=== PATIENT | female | born 1935 | race African-American/Black ===

== ENCOUNTER 2024-01-05 13:44 | Observation (INO) | payer MEDICARE, OTHER ==
--- NOTE | 2024-01-05 14:06 | ED ---
General Adult HPI - General Chief complaint: Syncope Stated complaint: Syncope Time Seen by Provider: 01/05/24 13:45 Source: patient, EMS, RN notes reviewed, old records reviewed Mode of arrival: EMS Limitations: no limitations - History of Present Illness Initial comments: Is an 88-year-old female who presents to the emergency department stating that s he felt fine this morning had a checkup with her doctor today and after she got out of the doctor's office it was very hot outside she started feeling a little off at that point in time. Patient states when she got home she was a little nauseous and the next he knows she passed out. Patient states this happened about 2 weeks ago and she felt fine after show she never came in. Patient states she currently feels fine does not really want to be here. Patient denies ever having any chest pain difficulty breathing shortness of breath. Patient Nu[place] any vomiting or diarrhea. Patient denies any recent fever chills or cough. Patient states she feels completely at her baseline now and has no complaints - Related Data Home Medications Medication Instructions Recorded Confirmed Acetaminophen [Tylenol Arthritis] 650 - 1,300 mg PO Q6H PRN 01/05/24 01/05/24 Apixaban [Eliquis] 5 mg PO BID 01/05/24 01/05/24 Empagliflozin [Jardiance] 10 mg PO DAILY 01/05/24 01/05/24 Escitalopram [Lexapro] 10 mg PO DAILY 01/05/24 01/05/24 Furosemide [Lasix] 40 mg PO DAILY 01/05/24 01/05/24 Gabapentin [Gralise] 600 mg PO BID PRN 01/05/24 01/05/24 Losartan Potassium 100 mg PO DAILY 01/05/24 01/05/24 Metoprolol Tartrate [Lopressor] 25 mg PO BID 01/05/24 01/05/24 Pantoprazole [Protonix] 40 mg PO DAILY 01/05/24 01/05/24 Potassium Chloride ER [K-Dur 20] 20 meq PO HS 01/05/24 01/05/24 oxyBUTYnin chloride [Ditropan] 5 mg PO DAILY 01/05/24 01/05/24 Allergies Allergy/AdvReac Type Severity Reaction Status Date / Time No Known Allergies Allergy Verified 01/05/24 14:25 Review of Systems ROS Statement: Those systems with pertinent positive or pertinent negative responses have been documented in the HPI. ROS Other: All systems not noted in ROS Statement are negative. Past Medical History Past Medical History: Heart Failure, Hypertension History of Any Multi-Drug Resistant Organisms: VRE Date of last positivie culture/infection: 09/06/19 MDRO Source:: VRE URINE Past Surgical History: No Surgical Hx Reported Smoking Status: Never smoker Past Alcohol Use History: None Reported Past Drug Use History: None Reported General Exam - General Exam Comments Initial Comments: GENERAL: Patient is well-developed and well-nourished. Patient is nontoxic and well- hydrated and is in no acute distress. ENT: Neck is soft and supple. No significant lymphadenopathy is noted. Oropharynx is clear. Moist mucous membranes. Neck has full range of motion without eliciting any pain. EYES: The sclera were anicteric and conjunctiva were pink and moist. Extraocular movements were intact and pupils were equal round and reactive to light. Eyelids were unremarkable. PULMONARY: Unlabored respirations. Good breath sounds bilaterally. No audible rales rhonchi or wheezing was noted. CARDIOVASCULAR: There is a regular rate and rhythm without any murmurs gallops or rubs. ABDOMEN: Soft and nontender with normal bowel sounds. No palpable organomegaly was noted. There is no palpable pulsatile mass. SKIN: Skin is clear with no lesions or rashes and otherwise unremarkable. NEUROLOGIC: Patient is alert and oriented x3. Cranial nerves II through XII are grossly intact. Motor and sensory are also intact. Normal speech, volume and content. Symmetrical smile. MUSCULOSKELETAL: Normal extremities with adequate strength and full range of motion. No lower extremity swelling or edema. No calf tenderness. LYMPHATICS: No significant lymphadenopathy is noted PSYCHIATRIC: Normal psychiatric evaluation. 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 Patient EKG shows no ST segment ovation or depression. Was pt. sent in by a medical professional or institution (, PA, ENTRY LEVEL SOFTWARE ENGINEER, urgent care, hospital, or jail...) When possible be specific @ -No Did you speak to anyone other than the patient for history (EMS, parent, family, police, friend...)? What history was obtained from this source @ -No Did you review nursing and triage notes (agree or disagree)? Why? @ -I reviewed and agree with nursing and triage notes Were old charts reviewed (outside hosp., previous admission, EMS record, old EKG, old radiological studies, urgent care reports/EKG's, jail records)? Report findings @ -No old charts were reviewed Differential Diagnosis (chest pain, altered mental status, abdominal pain women, abdominal pain men, vaginal bleeding, weakness, fever, dyspnea, syncope, headache, dizziness, GI bleed, back pain, seizure, CVA, palpatations, mental health, musculoskeletal)? @ -Differential Syncope: Valvular disease, hypertrophic cardiomyopathy, pulmonary embolism, tamponade, tachycardia, bradycardia, ME, hypovolemia, hemorrhage, dissection, anemia, intracranial hemorrhage, seizure, hypoglycemia, carbon monoxide poisoning, this is not meant to be an all-inclusive list. EKG interpreted by me (3pts min.). @ -As above X-rays interpreted by me (1pt min.). @ -Chest x-ray shows no acute abnormality CT interpreted by me (1pt min.). @ -None done U/S interpreted by me (1pt. min.). @ -None done What testing was considered but not performed or refused? (CT, X-rays, U/S, labs)? Why? @ -None What meds were considered but not given or refused? Why? @ -None Did you discuss the management of the patient with other Professionals (professionals i.e. , PA, ENTRY LEVEL SOFTWARE ENGINEER, lab, RT, psych nurse, high school social studies teacher, supervisor of communications, teacher, business services officer, manager it security)? Give summary @ -I spoke with Dr. Shields and he agreed to meet the patient 23 hours Was smoking cessation discussed for >3mins.? @ -No Was critical care preformed (if so, how long)? @ -No Were there social determinants of health that impacted care today? How? (Homelessness, low income, unemployed, alcoholism, drug addiction, transportation, low edu. Level, literacy, decrease access to med. care, long term, rehab)? @ -No Was there de-escalation of care discussed even if they declined (Discuss DNR or withdrawal of care, Hospice)? DNR status @ -No What co-morbidities impacted this encounter? (DM, HTN, Smoking, COPD, CAD, Cancer, CVA, ARF, Chemo, Hep., AIDS, mental health diagnosis, sleep apnea, mo rbid obesity)? @ -None Was patient admitted / discharged? Hospital course, mention meds given and [place], prescriptions, significant lab abnormalities, going to OR and other pertinent info. @ -Patient had no complaints when she arrived however we tried to stand up she felt too weak to stand so we were unable to complete orthostatics and it was at this point in time the labs were normal I decided to speak with Dr. Shields and he want the patient mated for 23-hour observation Undiagnosed new problem with uncertain prognosis? @ -No Drug Therapy requiring intensive monitoring for toxicity (Heparin, Nitro, Insulin, Cardizem)? @ -No Were any procedures done? @ -No Diagnosis/symptom? @ -Syncope Acute, or Chronic, or Acute on Chronic? @ -Acute Uncomplicated (without systemic symptoms) or Complicated (systemic symptoms)? @ -Complicated Side effects of treatment? @ -No Exacerbation, Progression, or Severe Exacerbation? @ -No Poses a threat to life or bodily function? How? (Chest pain, USA, ME, pneumonia, PE, COPD, DKA, ARF, appy, cholecystitis, CVA, Diverticulitis, Homicidal, Suicidal, threat to staff... and all critical care pts) @ -Yes this could lead to a fall and morbidity or mortality - Lab Data Result diagrams: 01/05/24 14:05 01/05/24 14:05 Lab Results 01/05/24 01/05/24 01/05/24 Range/Units 14:05 14:05 14:05 WBC 11.7 H (3.8-10.6) k/uL RBC 4.71 (3.80-5.40) m/uL Hgb 12.4 (11.4-16.0) gm/dL Hct 40.8 (34.0-46.0) % MCV 86.6 (80.0-100.0) fL MCH 26.3 (25.0-35.0) pg MCHC 30.4 L (31.0-37.0) g/dL RDW 14.7 (11.5-15.5) % Plt Count 258 (150-450) k/uL MPV 8.7 Neutrophils % 65 % Lymphocytes % 25 % Monocytes % 4 % Eosinophils % 4 % Basophils % 1 % Neutrophils # 7.6 (1.3-7.7) k/uL Lymphocytes # 2.9 (1.0-4.8) k/uL Monocytes # 0.5 (0-1.0) k/uL Eosinophils # 0.5 (0-0.7) k/uL Basophils # 0.1 (0-0.2) k/uL Hypochromasia Slight PT 12.3 (10.0-12.5) sec INR 1.1 (<1.2) APTT 25.5 (22.0-30.0) sec Sodium 136 L (137-145) mmol/L Potassium 4.9 (3.5-5.1) mmol/L Chloride 101 (98-107) mmol/L Carbon Dioxide 27 (22-30) mmol/L Anion Gap 8 mmol/L BUN 30 H (7-17) mg/dL Creatinine 1.32 H (0.52-1.04) mg/dL Est GFR (CKD-EPI)AfAm 42 (>60 ml/min/1.73 sqM) Est GFR (CKD-EPI)NonAf 36 (>60 ml/min/1.73 sqM) Glucose 123 H (74-99) mg/dL Calcium 9.2 (8.4-10.2) mg/dL Magnesium 1.8 (1.6-2.3) mg/dL Total Bilirubin 0.6 (0.2-1.3) mg/dL AST 21 (14-36) U/L ALT 13 (4-34) U/L Alkaline Phosphatase 68 (38-126) U/L Troponin I (0.000-0.034) ng/mL Total Protein 7.3 (6.3-8.2) g/dL Albumin 3.9 (3.5-5.0) g/dL 01/05/24 Range/Units 14:05 WBC (3.8-10.6) k/uL RBC (3.80-5.40) m/uL Hgb (11.4-16.0) gm/dL Hct (34.0-46.0) % MCV (80.0-100.0) fL MCH (25.0-35.0) pg MCHC (31.0-37.0) g/dL RDW (11.5-15.5) % Plt Count (150-450) k/uL MPV Neutrophils % % Lymphocytes % % Monocytes % % Eosinophils % % Basophils % % Neutrophils # (1.3-7.7) k/uL Lymphocytes # (1.0-4.8) k/uL Monocytes # (0-1.0) k/uL Eosinophils # (0-0.7) k/uL Basophils # (0-0.2) k/uL Hypochromasia PT (10.0-12.5) sec INR (<1.2) APTT (22.0-30.0) sec Sodium (137-145) mmol/L Potassium (3.5-5.1) mmol/L Chloride (98-107) mmol/L Carbon Dioxide (22-30) mmol/L Anion Gap mmol/L BUN (7-17) mg/dL Creatinine (0.52-1.04) mg/dL Est GFR (CKD-EPI)AfAm (>60 ml/min/1.73 sqM) Est GFR (CKD-EPI)NonAf (>60 ml/min/1.73 sqM) Glucose (74-99) mg/dL Calcium (8.4-10.2) mg/dL Magnesium (1.6-2.3) mg/dL Total Bilirubin (0.2-1.3) mg/dL AST (14-36) U/L ALT (4-34) U/L Alkaline Phosphatase (38-126) U/L Troponin I <0.012 (0.000-0.034) ng/mL Total Protein (6.3-8.2) g/dL Albumin (3.5-5.0) g/dL Disposition Clinical Impression: Syncope Disposition: ADMITTED IP TO THIS [facility] Referrals: Reinier Shields DO [Primary Care Provider] - 1-2 days Time of Disposition: 17:02
[2024-01-05] MEDS: SODIUM CHLORIDE 0.9% 500 ML 500 ML IV STA (14:08)
[2024-01-05 14:28] LABS: Basophils # (A) 0.1 k/uL (0-0.2); Basophils % (A) 1 %; Eosinophils # (A) 0.5 k/uL (0-0.7); Eosinophils % (A) 4 %; HCT 40.8 % (34.0-46.0); HGB 12.4 gm/dL (11.4-16.0); Hypochromasia Slight; Lymphocytes # (A) 2.9 k/uL (1.0-4.8); Lymphocytes % (A) 25 %; MCH 26.3 pg (25.0-35.0); MCHC 30.4 g/dL (31.0-37.0); MCV 86.6 fL (80.0-100.0); Mean Platelet Volume 8.7; Monocytes # (A) 0.5 k/uL (0-1.0); Monocytes % (A) 4 %; Neutrophils # (A) 7.6 k/uL (1.3-7.7); Neutrophils % (A) 65 %; Platelet Count 258 k/uL (150-450); RBC 4.71 m/uL (3.80-5.40); RDW 14.7 % (11.5-15.5); WBC 11.7 k/uL (3.8-10.6)
--- NOTE | 2024-01-05 14:41 | XR ---
EXAMINATION TYPE: XR chest 2V DATE OF EXAM: 01/05/2024 COMPARISON: None INDICATION: Chest pain TECHNIQUE: Frontal and lateral views of the chest are obtained. FINDINGS: The heart size is borderline prominent. The pulmonary vasculature is upper limits for normal. The lungs are clear. IMPRESSION: 1. Borderline cardiomegaly. Consider volume overload.
[2024-01-05 14:45] LABS: INR 1.1 (<1.2); Partial Thromboplastin Time 25.5 sec (22.0-30.0); Prothrombin Time 12.3 sec (10.0-12.5)
[2024-01-05 14:46] LABS: ALT 13 U/L (4-34); African American GFR (CKD) 42 (>60 ml/min/1.73 sqM); Albumin 3.9 g/dL (3.5-5.0); Anion Gap 8 mmol/L; Blood Urea Nitrogen 30 mg/dL (7-17); Calcium 9.2 mg/dL (8.4-10.2); Carbon Dioxide 27 mmol/L (22-30); Chloride 101 mmol/L (98-107); Glucose 123 mg/dL (74-99); Non-African American GFR(CKD) 36 (>60 ml/min/1.73 sqM); Sodium 136 mmol/L (137-145); Total Bilirubin 0.6 mg/dL (0.2-1.3); Total Protein 7.3 g/dL (6.3-8.2)
[2024-01-05 14:52] LABS: Potassium 4.9 mmol/L (3.5-5.1)
[2024-01-05 14:53] LABS: AST 21 U/L (14-36); Alkaline Phosphatase 68 U/L (38-126); Magnesium 1.8 mg/dL (1.6-2.3)
[2024-01-05] MEDS: APIXABAN 5 MG TAB PO SCH (21:11)
[2024-01-05] MEDS: POTASSIUM CHLORIDE ER 20 MEQ TAB.ER PO SCH (21:11)
[2024-01-05] MEDS: METOPROLOL TARTRATE 25 MG TAB PO SCH (21:11)
[2024-01-05] MEDS: ACETAMINOPHEN TAB 325 MG TAB PO PRN (21:19)
[2024-01-05] MEDS: GABAPENTIN 300 MG CAP PO PRN (21:20)
[2024-01-06 01:47] VITALS: RESP 16
[2024-01-06 07:55] VITALS: BP 123/72; PULSE 57; TEMP 97.8
[2024-01-06] MEDS: oxyBUTYnin chloride 5 MG TAB PO SCH (09:05)
[2024-01-06] MEDS: ESCITALOPRAM 10 MG TAB PO SCH (09:05)
[2024-01-06] MEDS: PANTOPRAZOLE 40 MG TABLET PO SCH (09:05)
[2024-01-06] MEDS: LOSARTAN 50 MG TAB PO SCH (09:05)
[2024-01-06] MEDS: DAPAGLIFLOZIN PROPANEDIOL 5 MG TABLET PO SCH (09:05)
[2024-01-06] MEDS: FUROSEMIDE 40 MG TAB PO SCH (09:05)
[2024-01-06] MEDS: SODIUM CHLORIDE 0.9% 1,000 ML IV SCH (09:08)
[2024-01-06] MEDS: METOPROLOL TARTRATE 12.5 MG TAB PO SCH (09:08)
--- NOTE | 2024-01-06 11:25 | P.CRDCN ---
History of Present Illness History of present illness: HISTORY OF PRESENT ILLNESS: This is a 88-year-old female with a past medical history significant for hypertension, hyperlipidemia, paroxysmal atrial fibrillation, and morbid obesity. Patient follows in the office with Dr. Paris. We have been asked to see the patient in consultation for syncope. Patient examined at the bedside. Patient states yesterday she had an appointment with her PCP, Dr. Shields. She states afterwards she was being wheeled into a van to go home and once she was in the van she states that she felt like her vision became foggy. She also reports that she was nauseated but did not throw up. She states that when she went home she went to lay down and was watching some TV when the TV screen became light and she could not see what was on the screen. She reports feeling dizzy at that time as well. She denies ever losing consciousness. She denied any chest pain or pressure. Denied any shortness of breath. The patient Caeli members at the bedside and states that patient also had a similar episode to this about 2 weeks ago when she was outside sitting on the porch. DIAGNOSTICS: - EKG reveals sinus mechanism with a heart rate in the 50s - Chest xray borderline cardiomegaly.. - Laboratory data: WBC 11.7. Hemoglobin 12.4. Platelet count 258. Sodium 136. Potassium 4.9. BUN 30. Creatinine 1.32. Magnesium 1.8. Troponin negative x 1 - Current home cardiac medications include metoprolol tartrate 25 mg twice a day, Eliquis 5 mg twice a day, Jardiance 10 mg daily, Lasix 40 mg daily, losartan 100 mg daily. - Most recent echocardiogram obtained at [facility] in October 2023 revealed ejection fraction 50 to 55% - Cardiac catheterization history: Patient denies REVIEW OF SYSTEMS: At the time of my exam: CONSTITUTIONAL: Denies fever or chills. HEENT: Denies blurred vision, vision changes, or eye pain. Denies hemoptysis CARDIOVASCULAR: Denies chest pain. Denies orthopnea. Denies PND. Denies palpitations RESPIRATORY: Denies shortness of breath. GASTROINTESTINAL: Denies abdominal pain. Denies nausea or vomiting. HEMATOLOGIC: Denies bleeding disorders. GENITOURINARY: Denies any blood in urine. SKIN: Denies pruitis. Denies rash. PHYSICAL EXAM: VITAL SIGNS: Reviewed. GENERAL: Well-developed in no acute distress. HEENT: Head is normocephalic. Pupils are equal, round. Sclerae anicteric. Mucous membranes of the mouth are moist. Neck supple. No JVD or thyromegaly LUNGS: Respirations even and unlabored. Lungs essentially clear to auscultation bilaterally. HEART: Regular rate and rhythm. S1 and S2 heard. ABDOMEN: Soft. Nondistended. Nontender. EXTREMITIES: Normal range of motion. No clubbing or cyanosis. Peripheral pulses intact. No lower extremity edema NEUROLOGIC: Awake and alert. Oriented x 3. ASSESSMENT: Presyncope without loss of consciousness, likely secondary to combination of bradycardia and dehydration Acute kidney injury Sinus bradycardia Hypertension Hyperlipidemia Paroxysmal atrial fibrillation Morbid obesity: BMI 42.3 PLAN: No need to repeat echocardiogram as this was performed in October 2023 at [facility] Decrease metoprolol to 12.5 mg twice a day Resume additional cardiac medications Begin normal saline at 75 cc an hour secondary to acute kidney injury Obtain orthostatic blood pressures Patient is scheduled to receive an outpatient heart monitor on Thursday at the cardiology office Further recommendations pending patient course Nurse practitioner note has been reviewed by physician. Signing provider agrees with the documented findings, assessment, and plan of care documented by FAMILY LAW LEGAL ASSISTANT as a scribe. Past Medical History Past Medical History: Heart Failure, Hypertension History of Any Multi-Drug Resistant Organisms: VRE Date of last positivie culture/infection: 09/06/19 MDRO Source:: VRE URINE Past Surgical History: No Surgical Hx Reported Smoking Status: Never smoker Past Alcohol Use History: None Reported Past Drug Use History: None Reported Medications and Allergies Home Medications Medication Instructions Recorded Confirmed Type Acetaminophen [Tylenol Arthritis] 650 - 1,300 mg PO Q6H PRN 01/05/24 01/05/24 H istory Apixaban [Eliquis] 5 mg PO BID 01/05/24 01/05/24 History Empagliflozin [Jardiance] 10 mg PO DAILY 01/05/24 01/05/24 History Escitalopram [Lexapro] 10 mg PO DAILY 01/05/24 01/05/24 History Furosemide [Lasix] 40 mg PO DAILY 01/05/24 01/05/24 History Gabapentin [Gralise] 600 mg PO BID PRN 01/05/24 01/05/24 History Losartan Potassium 100 mg PO DAILY 01/05/24 01/05/24 History Pantoprazole [Protonix] 40 mg PO DAILY 01/05/24 01/05/24 History Potassium Chloride ER [K-Dur 20] 20 meq PO HS 01/05/24 01/05/24 History oxyBUTYnin chloride [Ditropan] 5 mg PO DAILY 01/05/24 01/05/24 History Metoprolol Tartrate [Lopressor] 12.5 mg PO BID #60 tab 01/06/24 Rx Allergies Allergy/AdvReac Type Severity Reaction Status Date / Time No Known Allergies Allergy Verified 01/05/24 14:25 Physical Exam Vitals: Vital Signs Temp Pulse Pulse Pulse Pulse Resp BP 01/06/24 07:00 97.8 F 57 L 16 01/06/24 01:46 98.2 F 59 L 16 01/05/24 20:00 98.4 F 60 18 01/05/24 18:00 98.1 F 57 L 17 01/05/24 17:35 55 L 18 153/82 01/05/24 17:10 98 F 01/05/24 16:15 62 52 L 01/05/24 15:00 57 L 18 137/62 01/05/24 13:45 63 18 145/65 BP BP BP BP Pulse Ox 01/06/24 07:00 123/72 99 01/06/24 01:46 151/73 01/05/24 20:00 130/76 97 01/05/24 18:00 140/78 99 01/05/24 17:35 96 01/05/24 17:10 01/05/24 16:15 135/87 134/94 01/05/24 15:00 96 01/05/24 13:45 95 Intake and Output 01/05/24 01/06/24 01/06/24 22:59 06:59 14:59 Output Total 0 750 Balance 0 -750 Output: Urine 750 Stool 0 Other: Voiding Method External Catheter # Bowel Movements 0 Weight 122.47 kg Results 01/05/24 14:05 01/05/24 14:05 Cardiac Enzymes 01/05/24 01/05/24 Range/Units 14:05 14:05 AST 21 (14-36) U/L Troponin I <0.012 (0.000-0.034) ng/mL Coagulation 01/05/24 Range/Units 14:05 PT 12.3 (10.0-12.5) sec APTT 25.5 (22.0-30.0) sec CBC 01/05/24 Range/Units 14:05 WBC 11.7 H (3.8-10.6) k/uL RBC 4.71 (3.80-5.40) m/uL Hgb 12.4 (11.4-16.0) gm/dL Hct 40.8 (34.0-46.0) % Plt Count 258 (150-450) k/uL Comprehensive Metabolic Panel 01/05/24 Range/Units 14:05 Sodium 136 L (137-145) mmol/L Potassium 4.9 (3.5-5.1) mmol/L Chloride 101 (98-107) mmol/L Carbon Dioxide 27 (22-30) mmol/L BUN 30 H (7-17) mg/dL Creatinine 1.32 H (0.52-1.04) mg/dL Glucose 123 H (74-99) mg/dL Calcium 9.2 (8.4-10.2) mg/dL AST 21 (14-36) U/L ALT 13 (4-34) U/L Alkaline Phosphatase 68 (38-126) U/L Total Protein 7.3 (6.3-8.2) g/dL Albumin 3.9 (3.5-5.0) g/dL Current Medications Generic Name Dose Route Start Last Admin Trade Name Freq PRN Reason Stop Dose Admin Acetaminophen 650 mg 01/05/24 19:48 01/05/24 21:19 Acetaminophen Tab 325 Mg Tab PO 650 mg Q6H PRN Administration Pain or Fever > 100.5 Apixaban 5 mg 01/05/24 21:00 01/05/24 21:11 Apixaban 5 Mg Tab PO 5 mg BID JOHN Administration Protocol Dapagliflozin 5 mg 01/06/24 09:00 Dapagliflozin Propanediol 5 Mg Tablet PO DAILY [facility] Escitalopram Oxalate 10 mg 01/06/24 09:00 Escitalopram 10 Mg Tab PO DAILY [facility] Furosemide 40 mg 01/06/24 09:00 Furosemide 40 Mg Tab PO DAILY [facility] Gabapentin 600 mg 01/05/24 19:48 01/05/24 21:20 Gabapentin 300 Mg Cap PO 600 mg BID PRN Administration Pain Losartan Potassium 100 mg 01/06/24 09:00 Losartan 50 Mg Tab PO DAILY JOHN Metoprolol Tartrate 25 mg 01/05/24 21:00 01/05/24 21:11 Metoprolol Tartrate 25 Mg Tab PO 25 mg BID JOHN Administration Oxybutynin Chloride 5 mg 01/06/24 09:00 Oxybutynin Chloride 5 Mg Tab PO DAILY JOHN Pantoprazole Sodium 40 mg 01/06/24 09:00 Pantoprazole 40 Mg Tablet PO DAILY JOHN Potassium Chloride 20 meq 01/05/24 21:00 01/05/24 21:11 Potassium Chloride Er 20 Meq Tab.Er PO 20 meq HS JOHN Administration Intake and Output 01/05/24 01/06/24 01/06/24 22:59 06:59 14:59 Output Total 0 750 Balance 0 -750 Output: Urine 750 Stool 0 Other: Voiding Method External Catheter # Bowel Movements 0 Weight 122.47 kg 01/05/24 14:05 01/05/24 14:05
--- NOTE | 2024-01-06 15:29 | P.HPIM ---
History of Present Illness H&P Date: 01/06/24 Chief Complaint: Near Syncope History and Physical and Discharge Summary: This is an 88-year-old female with past medical history significant for pa roxysmal atrial fibrillation-anticoagulated on Eliquis, CHF, hypertension, hyperlipidemia, morbid obesity and multiple other medical issues presented to the ER with complaints of syncope. Reports yesterday after getting into the van for her ride home from follow-up with PCP, her "vision jimmy out" accompanied by nausea. Denies emesis, denies abdominal pain. Upon arrival home, laid down, attempted to watch TV, unsuccessfully as the TV was jimmy out as well. Reports mild dizziness at that time with near syncope. Denies loss of consciousness. Denies incontinence of bowel movement or urine .denies fall, trauma. denies chest pain, palpitations or shortness of breath. Patient also reports a similar occurrence approximately 2 weeks ago, when her PICC line was being removed while sitting on the porch-developed "white out vision with mild dizziness." She currently is asymptomatic, ambulating, tolerating exertion well. EKG reported sinus rhythm/sinus bradycardia, chest x-ray reported borderline cardiomegaly,WBC 11.7. Hemoglobin 12.4. Platelet count 258. Sodium 136. Potassium 4.9. BUN 30. Creatinine 1.32. Magnesium 1.8. Troponin negative x 1. Review of Systems ROS Statement: Those systems with pertinent positive or pertinent negative responses have been documented in the HPI. ROS Other: All systems not noted in ROS Statement are negative. Past Medical History Past Medical History: Heart Failure, Hypertension History of Any Multi-Drug Resistant Organisms: VRE Date of last positivie culture/infection: 09/06/19 MDRO Source:: VRE URINE Past Surgical History: No Surgical Hx Reported Smoking Status: Never smoker Past Alcohol Use History: None Reported Past Drug Use History: None Reported Medications and Allergies Home Medications Medication Instructions Recorded Confirmed Type Acetaminophen [Tylenol Arthritis] 650 - 1,300 mg PO Q6H PRN 01/05/24 01/05/24 History Apixaban [Eliquis] 5 mg PO BID 01/05/24 01/05/24 History Empagliflozin [Jardiance] 10 mg PO DAILY 01/05/24 01/05/24 History Escitalopram [Lexapro] 10 mg PO DAILY 01/05/24 01/05/24 History Furosemide [Lasix] 40 mg PO DAILY 01/05/24 01/05/24 History Gabapentin [Gralise] 600 mg PO BID PRN 01/05/24 01/05/24 History Losartan Potassium 100 mg PO DAILY 01/05/24 01/05/24 History Pantoprazole [Protonix] 40 mg PO DAILY 01/05/24 01/05/24 History Potassium Chloride ER [K-Dur 20] 20 meq PO HS 01/05/24 01/05/24 History oxyBUTYnin chloride [Ditropan] 5 mg PO DAILY 01/05/24 01/05/24 History Metoprolol Tartrate [Lopressor] 12.5 mg PO BID #60 tab 01/06/24 Rx Allergies Allergy/AdvReac Type Severity Reaction Status Date / Time No Known Allergies Allergy Verified 01/05/24 14:25 Physical Exam Vitals: Vital Signs Temp Pulse Pulse Pulse Pulse Resp BP 01/06/24 07:00 97.8 F 57 L 16 01/06/24 01:46 98.2 F 59 L 16 01/05/24 20:00 98.4 F 60 18 01/05/24 18:00 98.1 F 57 L 17 01/05/24 17:35 55 L 18 153/82 01/05/24 17:10 98 F 01/05/24 16:15 62 52 L 01/05/24 15:00 57 L 18 137/62 01/05/24 13:45 63 18 145/65 BP BP BP BP Pulse Ox 01/06/24 07:00 123/72 99 01/06/24 01:46 151/73 01/05/24 20:00 130/76 97 01/05/24 18:00 140/78 99 01/05/24 17:35 96 01/05/24 17:10 01/05/24 16:15 135/87 134/94 01/05/24 15:00 96 01/05/24 13:45 95 Intake and Output 01/05/24 01/06/24 01/06/24 22:59 06:59 14:59 Output Total 0 750 Balance 0 -750 Output: Urine 750 Stool 0 Other: Voiding Method External Catheter # Bowel Movements 0 Weight 122.47 kg PHYSICAL EXAM: VITAL SIGNS: [As above] GENERAL: Pleasant elderly female, sitting up in bed, alert and oriented x 3, no acute distress. HEENT: Normocephalic, atraumatic, conjunctivae normal. eyes normal. MMM. NECK: Supple, no JVD. No thyroid enlargement. No LNs CARDIOVASCULAR: S1, S2 regular.. No murmur RESPIRATION: Unlabored, equal air entry, clear to auscultation ,breath sounds diminished in the bases. No rhonchi or crackles. No bronchial breathing. ABDOMEN: Soft, nontender, nondistended. No guarding. no masses palpable. No ascites, No hepatosplenomegaly.Bowel sounds heard. LEGS: No edema. no swelling , no clubbing, no cyanosis, positive DP pulses NERVOUS SYSTEM: Cranial N 2-12 grossly normal. No focal deficits. Strength and sensation grossly intact.. Skin: Warm and dry, no rash Results CBC & Chem 7: 01/05/24 14:05 01/05/24 14:05 Labs: Abnormal Lab Results - Last 24 Hours (Table) 01/05/24 01/05/24 Range/Units 14:05 14:05 WBC 11.7 H (3.8-10.6) k/uL MCHC 30.4 L (31.0-37.0) g/dL Sodium 136 L (137-145) mmol/L BUN 30 H (7-17) mg/dL Creatinine 1.32 H (0.52-1.04) mg/dL Glucose 123 H (74-99) mg/dL Thrombosis Risk Factor Assmnt - Choose All That Apply Each Factor Represents 1 point: Obesity (BMI >25) Each Risk Factor Represents 3 Points: Age 75 years or older Thrombosis Risk Factor Assessment Total Risk Factor Score: 4 Thrombosis Risk Factor Assessment Level: Moderate Risk Assessment and Plan Assessment: Near syncope, suspect related to dehydration, sinus bradycardia, possibly vasovagal Acute renal insufficiency Chronic CHF, diastolic dysfunction Paroxysmal atrial fibrillation, anticoagulated on Eliquis Hypertension Hyperlipidemia Morbid obesity, BMI 42 Plan: Continue on current medication regimen ,monitoring and symptomatic treatment. Cardiology consult in place, recommendations pending. Orthostatic vital signs ordered. Gentle IV fluid hydration. patient will be discharged home today in a stable condition with guarded prognosis pending final DC recommendations and clearance per cardiology. Discharge Medication List Acetaminophen [Tylenol Arthritis] 650 - 1,300 mg PO Q6H PRN 01/05/24 [History] Apixaban [Eliquis] 5 mg PO BID 01/05/24 [History] Empagliflozin [Jardiance] 10 mg PO DAILY 01/05/24 [History] Escitalopram [Lexapro] 10 mg PO DAILY 01/05/24 [History] Furosemide [Lasix] 40 mg PO DAILY 01/05/24 [History] Gabapentin [Gralise] 600 mg PO BID PRN 01/05/24 [History] Losartan Potassium 100 mg PO DAILY 01/05/24 [History] Pantoprazole [Protonix] 40 mg PO DAILY 01/05/24 [History] Potassium Chloride ER [K-Dur 20] 20 meq PO HS 01/05/24 [History] oxyBUTYnin chloride [Ditropan] 5 mg PO DAILY 01/05/24 [History] Metoprolol Tartrate [Lopressor] 12.5 mg PO BID #60 tab 01/06/24 [Rx] The impression and plan of care has been dictated as directed. : I performed a history and examination of this patient, discussed the same with the dictator. I agree with the dictator's note ,documented as a scribe. Any additional findings or plans will be noted.
== END 2024-01-06 14:15 | disposition home or self-care (01) ==
LOC: EC 13:44 → 6NMEDSUR 17:03
PROVIDERS: ADMIT Family Medicine; ATTEND Family Medicine
DX: R55 Syncope and collapse (principal); N17.9 Acute kidney failure, unspecified; E86.0 Dehydration; R00.1 Bradycardia, unspecified; I48.0 Paroxysmal atrial fibrillation; I11.0 Hypertensive heart disease with heart failure; I50.32 Chronic diastolic (congestive) heart failure; E78.5 Hyperlipidemia, unspecified; E66.01 Morbid (severe) obesity due to excess calories; Z68.41 Body mass index [BMI] 40.0-44.9, adult; Z79.01 Long term (current) use of anticoagulants; Z79.84 Long term (current) use of oral hypoglycemic drugs; Z79.899 Other long term (current) drug therapy
CPT/HCPCS: 96360; 96361; 99285; 36415; 93005; 80053; 83735; 84484; 85025; 85610; 85730; 71046; G0378 ×2

== ENCOUNTER 2024-02-17 18:27 | Inpatient (IN) | payer MEDICARE, OTHER ==
--- NOTE | 2024-02-17 19:51 | ED ---
Female Urogenital HPI - General Chief complaint: Vaginal Bleeding Stated complaint: Vaginal Spotting Time Seen by Provider: 02/17/24 19:48 Source: patient, RN notes reviewed Mode of arrival: ambulatory Limitations: no limitations - History of Present Illness Initial comments: 88-year-old female with history of atrial fibrillation presenting with family for vaginal bleeding. States patient had an episode of light vaginal spotting 1 month ago. They state today she was having bright red blood on the toilet paper when she wiped from the vaginal canal. Patient's daughters reports she has been having a fever and cough for the past day. Patient denies any current symptoms such as abdominal pain, chest pain, shortness of breath, dysuria, urinary mack quency, urinary urgency. States she has not been to the border patrol officer in many years. Denies any gynecological procedures such as hysterectomy. - Related Data Home Medications Medication Instructions Recorded Confirmed Acetaminophen [Tylenol Arthritis] 650 - 1,300 mg PO Q6H PRN 01/05/24 01/05/24 Apixaban [Eliquis] 5 mg PO BID 01/05/24 01/05/24 Empagliflozin [Jardiance] 10 mg PO DAILY 01/05/24 01/05/24 Escitalopram [Lexapro] 10 mg PO DAILY 01/05/24 01/05/24 Furosemide [Lasix] 40 mg PO DAILY 01/05/24 01/05/24 Gabapentin [Gralise] 600 mg PO BID PRN 01/05/24 01/05/24 Losartan Potassium 100 mg PO DAILY 01/05/24 01/05/24 Pantoprazole [Protonix] 40 mg PO DAILY 01/05/24 01/05/24 Potassium Chloride ER [K-Dur 20] 20 meq PO HS 01/05/24 01/05/24 oxyBUTYnin chloride [Ditropan] 5 mg PO DAILY 01/05/24 01/05/24 Previous Rx's Medication Instructions Recorded Metoprolol Tartrate [Lopressor] 12.5 mg PO BID #60 tab 01/06/24 Allergies Allergy/AdvReac Type Severity Reaction Status Date / Time Latex, Natural Rubber Allergy Rash/Hives Verified 02/17/24 18:40 Review of Systems ROS Statement: Those systems with pertinent positive or pertinent negative responses have been documented in the HPI. ROS Other: All systems not noted in ROS Statement are negative. Past Medical History Past Medical History: Heart Failure, Hypertension History of Any Multi-Drug Resistant Organisms: VRE Date of last positivie culture/infection: 09/06/19 MDRO Source:: VRE URINE Past Surgical History: No Surgical Hx Reported Smoking Status: Never smoker Past Alcohol Use History: None Reported Past Drug Use History: None Reported General Exam Limitations: no limitations General appearance: alert, in no apparent distress Head exam: Present: atraumatic, normocephalic, normal inspection Respiratory exam: Present: normal lung sounds bilaterally. Absent: respiratory distress, wheezes, rales, rhonchi, stridor Cardiovascular Exam: Present: regular rate, normal rhythm, normal heart sounds. Absent: systolic murmur, diastolic murmur, rubs, gallop, clicks GI/Abdominal exam: Present: soft, normal bowel sounds. Absent: distended, tenderness, guarding, rebound, rigid Extremities exam: Present: normal inspection, full ROM, normal capillary refill. Absent: tenderness, pedal edema, joint swelling, calf tenderness Neurological exam: Present: alert, oriented X3 Psychiatric exam: Present: normal affect, normal mood Skin exam: Present: warm, dry, intact, normal color. Absent: rash Course Vital Signs 02/17/24 02/17/24 02/17/24 18:34 20:31 21:32 Temperature 101.3 F H 99.4 F Pulse Rate 80 75 Respiratory 18 18 Rate Blood Pressure 115/78 111/71 O2 Sat by Pulse 98 97 Oximetry 02/17/24 02/17/24 02/17/24 22:04 23:38 23:47 Temperature 100.4 F H 99.3 F Pulse Rate 74 Respiratory 18 Rate Blood Pressure 105/61 O2 Sat by Pulse 98 Oximetry Medical Decision Making - Medical Decision Making Was pt. sent in by a medical professional or institution (, PA, HEAVY EQUIPMENT SALES MANAGER, urgent care, hospital, or residential...) When possible be specific @ -No Did you speak to anyone other than the patient for history (EMS, parent, family, police, friend...)? What history was obtained from this source @ -Patient's daughters provided most of history Did you review nursing and triage notes (agree or disagree)? Why? @ -I reviewed and agree with nursing and triage notes Were old charts reviewed (outside hosp., previous admission, EMS record, old EKG, old radiological studies, urgent care reports/EKG's, residential records)? Report findings @ -No old charts were reviewed Differential Diagnosis (chest pain, altered mental status, abdominal pain women, abdominal pain men, vaginal bleeding, weakness, fever, dyspnea, syncope, headache, dizziness, GI bleed, back pain, seizure, CVA, palpatations, mental health, musculoskeletal)? @ -Differential Fever: Pneumonia, viral URI, endocarditis, myocarditis, pericarditis, otitis, sinusitis, peritonsillar Abscess, retropharyngeal Abscess, epiglottitis, peritonitis, appendicitis, Melissa cystitis, diverticulitis, hepatitis, colitis, UTI, PID, TOA, pyelonephritis, prostatitis, epididymitis, meningitis, encephalitis, pulmonary embolism, CVA, thyroid storm, pancreatitis, adrenal crisis, cavernous sinus thrombosis, this is not meant to be an all-inclusive list. EKG interpreted by me (3pts min.). @ -As above X-rays interpreted by me (1pt min.). @ -Chest x-ray interpreted by me reveals no acute process CT interpreted by me (1pt min.). @ -None done U/S interpreted by me (1pt. min.). @ -Ultrasound of the pelvis revealed poor visualization of pelvic structures, uterus partially visualized What testing was considered but not performed or refused? (CT, X-rays, U/S, labs)? Why? @ -None What meds were considered but not given or refused? Why? @ -None Did you discuss the management of the patient with other professionals (professionals i.e. , PA, HEAVY EQUIPMENT SALES MANAGER, lab, RT, psych nurse, family welfare social work professor, immigration lawyer, teacher, patrol officer, caseworker)? Give summary @ -I spoke with Dr. Shields who agrees to accept admission at this time for fever with unknown source Was smoking cessation discussed for >3mins.? @ -No Was critical care preformed (if so, how long)? @ -No Were there social determinants of health that impacted care today? How? (Homelessness, low income, unemployed, alcoholism, drug addiction, transportation, low edu. Level, literacy, decrease access to med. care, fdc, rehab)? @ -No Was there de-escalation of care discussed even if they declined (Discuss DNR or withdrawal of care, Hospice)? DNR status @ -No What co-morbidities impacted this encounter? (DM, HTN, Smoking, COPD, CAD, Cancer, CVA, ARF, Chemo, Hep., AIDS, mental health diagnosis, sleep apnea, m orbid obesity)? @ -None Was patient admitted / discharged? Hospital course, mention meds given and r oute, prescriptions, significant lab abnormalities, going to OR and other pertinent info. @ -Patient was admitted. Patient was seen and evaluated for fever and vaginal bleeding. Initial temperature is 101.3 F, other vitals are within normal limits. Patient was given oral Tylenol for fever. Lab work including CBC, CMP, lactic acid is remarkable for white blood cell count of 19.1. Urine is rem arkable for 2+ glucose and small amount of blood. EKG reveals normal sinus rhythm with frequent PACs and nonspecific T wave abnormality. Ultrasound of pelvis reveals poor visualization of pelvic structures due to body habitus. Chest x-ray interpreted by me reveals no acute process, however final read pending upon admission. I spoke with Dr. Shields who agrees to accept admission at this time for fever with unknown source. Blood cultures were taken at this time. Patient and family are agreeable to plan. Case discussed with my ED attending Dr. Yeh Undiagnosed new problem with uncertain prognosis? @ -No Drug Therapy requiring intensive monitoring for toxicity (Heparin, Nitro, Insulin, Cardizem)? @ -No Were any procedures done? @ -No Diagnosis/symptom? @ -Fever of unknown source, vaginal bleeding Acute, or Chronic, or Acute on Chronic? @ -Acute Uncomplicated (without systemic symptoms) or Complicated (systemic symptoms)? @ -Uncomplicated Side effects of treatment? @ -No Exacerbation, Progression, or Severe Exacerbation? @ -No Poses a threat to life or bodily function? How? (Chest pain, [place], VA, pneumonia, PE, COPD, DKA, ARF, appy, cholecystitis, CVA, Diverticulitis, Homicidal, Suicidal, threat to staff... and all critical care pts) @ -Yes - Lab Data Result diagrams: 02/17/24 19:53 02/17/24 19:53 Lab Results 02/17/24 02/17/24 02/17/24 Range/Units 19:53 19:53 19:53 WBC 19.1 H (3.8-10.6) k/uL RBC 4.46 (3.80-5.40) m/uL Hgb 11.5 (11.4-16.0) gm/dL Hct 37.4 (34.0-46.0) % MCV 83.8 (80.0-100.0) fL MCH 25.9 (25.0-35.0) pg MCHC 30.9 L (31.0-37.0) g/dL RDW 15.3 (11.5-15.5) % Plt Count 281 (150-450) k/uL MPV 7.8 Neutrophils % 81 % Lymphocytes % 12 % Monocytes % 4 % Eosinophils % 2 % Basophils % 0 % Neutrophils # 15.5 H (1.3-7.7) k/uL Lymphocytes # 2.4 (1.0-4.8) k/uL Monocytes # 0.7 (0-1.0) k/uL Eosinophils # 0.3 (0-0.7) k/uL Basophils # 0.1 (0-0.2) k/uL Hypochromasia Moderate PT 12.9 H (10.0-12.5) sec INR 1.2 H (<1.2) APTT 27.6 (22.0-30.0) sec Sodium (137-145) mmol/L Potassium (3.5-5.1) mmol/L Chloride (98-107) mmol/L Carbon Dioxide (22-30) mmol/L Anion Gap mmol/L BUN (7-17) mg/dL Creatinine (0.52-1.04) mg/dL Est GFR (CKD-EPI)AfAm (>60 ml/min/1.73 sqM) Est GFR (CKD-EPI)NonAf (>60 ml/min/1.73 sqM) Glucose (74-99) mg/dL Plasma Lactic Acid Everette (0.7-2.0) mmol/L Calcium (8.4-10.2) mg/dL Total Bilirubin (0.2-1.3) mg/dL AST (14-36) U/L ALT (4-34) U/L Alkaline Phosphatase (38-126) U/L Total Protein (6.3-8.2) g/dL Albumin (3.5-5.0) g/dL Urine Color Colorless Urine Appearance Clear (Clear) Urine pH 6.0 (5.0-8.0) Ur Specific Odin 1.006 (1.001-1.035) Urine Protein Negative (Negative) Urine Glucose (UA) 2+ H (Negative) Urine Ketones Negative (Negative) Urine Blood Small H (Negative) Urine Nitrite Negative (Negative) Urine Bilirubin Negative (Negative) Urine Urobilinogen <2.0 (<2.0) mg/dL Ur Leukocyte Esterase Negative (Negative) Urine RBC 1 (0-5) /hpf Urine WBC <1 (0-5) /hpf Ur Squamous Epith Cells 1 (0-4) /hpf Urine Bacteria Rare H (None) /hpf Urine Mucus Rare H (None) /hpf Influenza Type A (PCR) (Not Detectd) Influenza Type B (PCR) (Not Detectd) RSV (PCR) (Not Detectd) SARS-CoV-2 (PCR) (Not Detectd) 02/17/24 02/17/24 02/17/24 Range/Units 19:53 19:53 20:45 WBC (3.8-10.6) k/uL RBC (3.80-5.40) m/uL Hgb (11.4-16.0) gm/dL Hct (34.0-46.0) % MCV (80.0-100.0) fL MCH (25.0-35.0) pg MCHC (31.0-37.0) g/dL RDW (11.5-15.5) % Plt Count (150-450) k/uL MPV Neutrophils % % Lymphocytes % % Monocytes % % Eosinophils % % Basophils % % Neutrophils # (1.3-7.7) k/uL Lymphocytes # (1.0-4.8) k/uL Monocytes # (0-1.0) k/uL Eosinophils # (0-0.7) k/uL Basophils # (0-0.2) k/uL Hypochromasia PT (10.0-12.5) sec INR (<1.2) APTT (22.0-30.0) sec Sodium 133 L (137-145) mmol/L Potassium 4.3 (3.5-5.1) mmol/L Chloride 102 (98-107) mmol/L Carbon Dioxide 24 (22-30) mmol/L Anion Gap 7 mmol/L BUN 23 H (7-17) mg/dL Creatinine 1.13 H (0.52-1.04) mg/dL Est GFR (CKD-EPI)AfAm 51 (>60 ml/min/1.73 sqM) Est GFR (CKD-EPI)NonAf 44 (>60 ml/min/1.73 sqM) Glucose 103 H (74-99) mg/dL Plasma Lactic Acid Everette 1.3 (0.7-2.0) mmol/L Calcium 9.4 (8.4-10.2) mg/dL Total Bilirubin 0.9 (0.2-1.3) mg/dL AST 48 H (14-36) U/L ALT 45 H (4-34) U/L Alkaline Phosphatase 85 (38-126) U/L Total Protein 7.1 (6.3-8.2) g/dL Albumin 3.8 (3.5-5.0) g/dL Urine Color Urine Appearance (Clear) Urine pH (5.0-8.0) Ur Specific Odin (1.001-1.035) Urine Protein (Negative) Urine Glucose (UA) (Negative) Urine Ketones (Negative) Urine Blood (Negative) Urine Nitrite (Negative) Urine Bilirubin (Negative) Urine Urobilinogen (<2.0) mg/dL Ur Leukocyte Esterase (Negative) Urine RBC (0-5) /hpf Urine WBC (0-5) /hpf Ur Squamous Epith Cells (0-4) /hpf Urine Bacteria (None) /hpf Urine Mucus (None) /hpf Influenza Type A (PCR) Not Detected (Not Detectd) Influenza Type B (PCR) Not Detected (Not Detectd) RSV (PCR) Not Detected (Not Detectd) SARS-CoV-2 (PCR) Not Detected (Not Detectd) - EKG Data -: EKG Interpreted by Vt EKG Comments: EKG reveals normal sinus rhythm with frequent PACs with nonspecific T wave abnormality. Ventricular rate 81 bpm, TN interval 150, QRS duration 92, QT/QTc 324/361 Disposition Clinical Impression: Fever, Vaginal bleeding Disposition: ADMITTED IP TO THIS [facility] Referrals: Reinier Shields DO [Primary Care Provider] - 1-2 days Time of Disposition: 00:18
[2024-02-17] MEDS: ACETAMINOPHEN TAB 500 MG TAB PO STA (20:53)
[2024-02-17 21:03] LABS: Basophils # (A) 0.1 k/uL (0-0.2); Basophils % (A) 0 %; Eosinophils # (A) 0.3 k/uL (0-0.7); Eosinophils % (A) 2 %; HCT 37.4 % (34.0-46.0); HGB 11.5 gm/dL (11.4-16.0); Hypochromasia Moderate; Lymphocytes # (A) 2.4 k/uL (1.0-4.8); Lymphocytes % (A) 12 %; MCH 25.9 pg (25.0-35.0); MCHC 30.9 g/dL (31.0-37.0); MCV 83.8 fL (80.0-100.0); Mean Platelet Volume 7.8; Monocytes # (A) 0.7 k/uL (0-1.0); Monocytes % (A) 4 %; Neutrophils # (A) 15.5 k/uL (1.3-7.7); Neutrophils % (A) 81 %; Platelet Count 281 k/uL (150-450); RBC 4.46 m/uL (3.80-5.40); RDW 15.3 % (11.5-15.5); WBC 19.1 k/uL (3.8-10.6)
[2024-02-17 21:11] LABS: INR 1.2 (<1.2); Partial Thromboplastin Time 27.6 sec (22.0-30.0); Prothrombin Time 12.9 sec (10.0-12.5)
[2024-02-17 21:17] LABS: Appearance,Urine Clear (Clear); Bacteria,Urine Rare /hpf; Bilirubin,Urine Negative (Negative); Blood,Urine Small (Negative); Color,Urine Colorless; Glucose,Urine (UA) 2+ (Negative); Ketones,Urine Negative (Negative); Leukocyte Esterase,Urine Negative (Negative); Mucus,Urine Rare /hpf; Nitrite,Urine Negative (Negative); Protein,Urine Negative (Negative); RBC,Urine 1 /hpf (0-5); Specific Gravity,Urine 1.006 (1.001-1.035); Squamous Epithelial Cell,Urine 1 /hpf (0-4); Urobilinogen,Urine <2.0 mg/dL (<2.0); WBC,Urine <1 /hpf (0-5)
[2024-02-17 21:18] LABS: ALT 45 U/L (4-34); African American GFR (CKD) 51 (>60 ml/min/1.73 sqM); Albumin 3.8 g/dL (3.5-5.0); Anion Gap 7 mmol/L; Blood Urea Nitrogen 23 mg/dL (7-17); Calcium 9.4 mg/dL (8.4-10.2); Carbon Dioxide 24 mmol/L (22-30); Chloride 102 mmol/L (98-107); Glucose 103 mg/dL (74-99); Non-African American GFR(CKD) 44 (>60 ml/min/1.73 sqM); Sodium 133 mmol/L (137-145); Total Bilirubin 0.9 mg/dL (0.2-1.3); Total Protein 7.1 g/dL (6.3-8.2)
[2024-02-17 21:21] LABS: AST 48 U/L (14-36); Alkaline Phosphatase 85 U/L (38-126); Potassium 4.3 mmol/L (3.5-5.1)
--- NOTE | 2024-02-17 22:14 | US ---
EXAMINATION TYPE: US pelvic complete DATE OF EXAM: 02/17/2024 COMPARISON: NONE CLINICAL INDICATION: Female, 88 years old with history of vaginal bleeding; Patient states vaginal sp otting that has happened for years. . No pelvic surgeries. Extremely limited examination due to patient body habitus and limited patient mobility TECHNIQUE: Transabdominal (TA). Transabdominal sonographic images of the pelvis were acquired. Date of LMP: No longer cycling EXAM MEASUREMENTS: Uterus: There is a 9.2 x 5.3 x 6.6cm area of mixed echogenicity, ? uterus vs other Endometrial Stripe: Unable to visualize Right Ovary: Unable to visualize Left Ovary: Unable to visualize TV ultrasound not performed due to body habitus and poor patient mobility 1. Uterus: There is a 9.2 x 5.3 x 6.6cm area of mixed echogenicity, ? uterus vs other 2. Endometrium: Obscured by overlying bowel gas 3. Right Ovary: Obscured by overlying bowel gas 4. Left Ovary: Obscured by overlying bowel gas 5. Bilateral Adnexa: Obscured by overlying bowel gas 6. Posterior cul-de-sac: wnl IMPRESSION: There is poor visualization of pelvic structures on this transabdominal only limited eval uations for reasons stated above. The uterus is partially visualized. Further characterization may be better assessed with direct visualization as clinically warranted.
[2024-02-18] MEDS ORDERED: MORPHINE SULFATE 4 MG/ML SYRINGE IV PRN (00:15)
[2024-02-18] MEDS ORDERED: NALOXONE 0.4 MG/ML 1 ML VIAL IV PRN (00:15)
--- NOTE | 2024-02-18 00:22 | XR ---
EXAM: XR Chest, 2 Views CLINICAL HISTORY: XR Reason: fever TECHNIQUE: Frontal and lateral views of the chest. COMPARISON: January 05, 2024 FINDINGS: Lungs: Hazy and streaky densities in the perihilar regions. No consolidation. Pleural space: Unremarkable. No pneumothorax. Heart: There is moderate cardiomegaly, similar to previous. Mediastinum: Unremarkable. Normal mediastinal contour. Bones/joints: Mild degenerative changes in the lower thoracic spine. No acute fracture. Soft tissues: Soft tissue artifact from massive body habitus. Tubes, lines and devices: There is an electronic device projecting over the left upper thorax. IMPRESSION: 1. Hazy and streaky densities in the perihilar regions. This is partially obscured by external soft tissue artifact but appears increased since previous. Possible developing pneumonia or pulmonary edema. 2. There is moderate cardiomegaly, similar to previous.
[2024-02-18] MEDS ORDERED: GABAPENTIN 300 MG CAP PO PRN (10:53)
[2024-02-18 11:34] LABS: HCT 38.1 % (34.0-46.0); HGB 11.9 gm/dL (11.4-16.0); Hypochromasia Marked; MCH 26.7 pg (25.0-35.0); MCHC 31.3 g/dL (31.0-37.0); MCV 85.4 fL (80.0-100.0); Mean Platelet Volume 7.6; Platelet Count 264 k/uL (150-450); RBC 4.47 m/uL (3.80-5.40); RDW 15.3 % (11.5-15.5); WBC 11.5 k/uL (3.8-10.6)
[2024-02-18 11:46] LABS: African American GFR (CKD) 58 (>60 ml/min/1.73 sqM); Anion Gap 6 mmol/L; Blood Urea Nitrogen 22 mg/dL (7-17); Calcium 9.3 mg/dL (8.4-10.2); Carbon Dioxide 26 mmol/L (22-30); Chloride 105 mmol/L (98-107); Glucose 98 mg/dL (74-99); Non-African American GFR(CKD) 50 (>60 ml/min/1.73 sqM); Potassium 4.1 mmol/L (3.5-5.1); Sodium 137 mmol/L (137-145)
[2024-02-18] MEDS: APIXABAN 5 MG TAB PO SCH (11:56)
[2024-02-18] MEDS: ESCITALOPRAM 10 MG TAB PO SCH (11:57)
[2024-02-18] MEDS: FUROSEMIDE 40 MG TAB PO SCH (11:57)
[2024-02-18] MEDS: LOSARTAN 50 MG TAB PO SCH (11:57)
[2024-02-18] MEDS: oxyBUTYnin chloride 5 MG TAB PO SCH (11:58)
[2024-02-18] MEDS: METOPROLOL TARTRATE 12.5 MG TAB PO SCH (11:58)
[2024-02-18] MEDS: PANTOPRAZOLE 40 MG TABLET PO SCH (11:58)
[2024-02-18] MEDS: DAPAGLIFLOZIN PROPANEDIOL 10 MG TABLET PO SCH (12:13)
[2024-02-18] MEDS: AZITHROMYCIN 500 MG in SODIUM CHLORIDE 0.9% 250 ML IVPB SCH (12:30)
--- NOTE | 2024-02-18 14:54 | P.HPIM ---
History of Present Illness H&P Date: 02/18/24 Chief Complaint: Fevers, coughing x 1 day, vaginal bleeding This is a 88-year-old female admitted with complaints of chills, rigors, fevers, cough x 1 day and vaginal bleeding in a patient with past medical history significant for diastolic CHF, paroxysmal atrial fibrillation, anticoagulated on Eliquis, hypertension, hyperlipidemia, morbid obesity and multiple other medical issues. Patient was recently hospitalized last month for near syncope, evaluated by cardiology, suspected dehydration, sinus bradycardia possible vasovagal etiology.Reports vaginal spotting for years, vaginal bleeding x 1 month, not followed up with a MOLD MAINTENANCE TECHNICIAN outpatient.Ultrasound pelvis reported poor visualization of the pelvic structures Limited evaluation, TV ultrasound not performed due to body habitus and poor patient mobility; 9.2 x 5.3 x 6.6 cm area of mixed echogenicity of possibly uterus. Chest x-ray reported hazy and streaky densities in the perihilar regions, partially obscured by external soft tissue artifact but appears increased since previous possible developing pneumonia or p ulmonary edema, moderate cardiomegaly, similar to previous. Tmax 101.3, blood cultures obtained. Denies chest pain, palpitations or shortness of breath. Maintaining O2 sats of 98% on room air. WBC on admission 19.1, hemoglobin 9.5, platelets 281, INR 1.2, sodium 133, potassium 4.3, bicarb 24, BUN 23, creatinine 1.13 glucose 103 lactic acid 1.3, AST 48, ALT 45, UA negative, viral studies negative. Review of Systems ROS Statement: Those systems with pertinent positive or pertinent negative responses have been documented in the HPI. ROS Other: All systems not noted in ROS Statement are negative. Past Medical History Past Medical History: Heart Failure, Hypertension History of Any Multi-Drug Resistant Organisms: VRE Date of last positivie culture/infection: 09/06/19 MDRO Source:: VRE URINE Past Surgical History: No Surgical Hx Reported Smoking Status: Never smoker Past Alcohol Use History: None Reported Past Drug Use History: None Reported Medications and Allergies Home Medications Medication Instructions Recorded Confirmed Type Acetaminophen [Tylenol Arthritis] 650 - 1,300 mg PO Q6H PRN 01/05/24 02/18/24 History Apixaban [Eliquis] 5 mg PO BID 01/05/24 02/18/24 History Empagliflozin [Jardiance] 10 mg PO DAILY 01/05/24 02/18/24 History Escitalopram [Lexapro] 10 mg PO DAILY 01/05/24 02/18/24 History Furosemide [Lasix] 40 mg PO DAILY 01/05/24 02/18/24 History Losartan Potassium 100 mg PO DAILY 01/05/24 02/18/24 History Pantoprazole [Protonix] 40 mg PO DAILY 01/05/24 02/18/24 History Potassium Chloride ER [K-Dur 20] 20 meq PO HS 01/05/24 02/18/24 History oxyBUTYnin chloride [Ditropan] 5 mg PO DAILY 01/05/24 02/18/24 History Metoprolol Tartrate [Lopressor] 12.5 mg PO BID #60 tab 01/06/24 02/18/24 Rx Gabapentin 600 mg PO BID PRN 02/18/24 02/18/24 History Allergies Allergy/AdvReac Type Severity Reaction Status Date / Time Latex, Natural Rubber Allergy Rash/Hives Verified 02/18/24 09:35 Physical Exam Vitals: Vital Signs Temp Pulse Resp BP Pulse Ox 02/18/24 07:48 98.3 F 78 18 125/82 98 02/18/24 04:10 97.5 F L 67 18 103/71 96 02/17/24 23:47 74 18 105/61 98 02/17/24 23:38 99.3 F 02/17/24 22:04 100.4 F H 02/17/24 21:32 75 18 111/71 97 02/17/24 20:31 99.4 F 02/17/24 18:34 101.3 F H 80 18 115/78 98 Intake and Output 02/17/24 02/18/24 02/18/24 22:59 06:59 14:59 Other: Weight 122.47 kg PHYSICAL EXAM: VITAL SIGNS: [As above] GENERAL: Pleasant elderly female, sitting up in bed, alert and oriented x 3, no acute distress. HEENT: Normocephalic, atraumatic, conjunctivae normal. eyes normal. MMM. NECK: Supple, no JVD. No thyroid enlargement. No LNs CARDIOVASCULAR: S1, S2 regular. No murmur RESPIRATION: Unlabored, equal air entry, clear to auscultation ,breath sounds diminished in the bases. No rhonchi or crackles. No bronchial breathing. ABDOMEN: Soft, nontender, nondistended. No guarding. no masses palpable. No ascites, No hepatosplenomegaly.Bowel sounds heard. LEGS: No edema. no swelling , no clubbing, no cyanosis, positive DP pulses NERVOUS SYSTEM: Cranial N 2-12 grossly normal. No focal deficits. Strength and sensation grossly intact.. Skin: Warm and dry, no rash Results CBC & Chem 7: 02/18/24 11:18 02/18/24 11:18 Labs: Abnormal Lab Results - Last 24 Hours (Table) 02/17/24 02/17/24 02/17/24 Range/Units 19:53 19:53 19:53 WBC 19.1 H (3.8-10.6) k/uL MCHC 30.9 L (31.0-37.0) g/dL Neutrophils # 15.5 H (1.3-7.7) k/uL PT 12.9 H (10.0-12.5) sec INR 1.2 H (<1.2) Sodium (137-145) mmol/L BUN (7-17) mg/dL Creatinine (0.52-1.04) mg/dL Glucose (74-99) mg/dL AST (14-36) U/L ALT (4-34) U/L Urine Glucose (UA) 2+ H (Negative) Urine Blood Small H (Negative) Urine Bacteria Rare H (None) /hpf Urine Mucus Rare H (None) /hpf 02/17/24 Range/Units 19:53 WBC (3.8-10.6) k/uL MCHC (31.0-37.0) g/dL Neutrophils # (1.3-7.7) k/uL PT (10.0-12.5) sec INR (<1.2) Sodium 133 L (137-145) mmol/L BUN 23 H (7-17) mg/dL Creatinine 1.13 H (0.52-1.04) mg/dL Glucose 103 H (74-99) mg/dL AST 48 H (14-36) U/L ALT 45 H (4-34) U/L Urine Glucose (UA) (Negative) Urine Blood (Negative) Urine Bacteria (None) /hpf Urine Mucus (None) /hpf Assessment and Plan Assessment: Possible developing community-acquired pneumonia, possible pulmonary edema.chest x-ray reports perihilar hazy, streaky densities with fevers, Tmax 10 1.3, elevated WBC. Procalcitonin ordered Leukocytosis Vaginal bleeding x 1 month, hemoglobin stable, recommend outpatient follow-up with MOLD MAINTENANCE TECHNICIAN. 9.2 x 5.3 x 6.6 cm area of mixed echogenicity of possibly uterus reported per pelvic ultrasound. Further follow-up outpatient with MOLD MAINTENANCE TECHNICIAN. Chronic CHF, diastolic dysfunction Paroxysmal atrial fibrillation, anticoagulated on Eliquis Hypertension Hyperlipidemia Morbid obesity, BMI 42 Plan: Continue on current medication regimen ,monitoring and symptomatic treatment. Blood cultures have been obtained. Sputum culture ordered. Empiric antibiotics of ceftriaxone and azithromycin ordered. Procalcitonin ordered. Discharge planning in progress for tomorrow pending continued improvement. The impression and plan of care has been dictated as directed. : I performed a history and examination of this patient, discussed the same with the dictator. I agree with the dictator's note ,documented as a scribe. Any additional findings or plans will be noted.
[2024-02-18] MEDS: POTASSIUM CHLORIDE ER 20 MEQ TAB.ER PO SCH (20:24)
--- NOTE | 2024-02-19 16:02 | P.DS ---
Providers Date of admission: 02/18/24 00:17 Expected date of discharge: 02/19/24 Attending physician: Reinier Shields Primary care physician: Reinier Shields Hospital Course: Final Diagnoses: Pneumonia, ruled out, procalcitonin normal. Leukocytosis nearly normalized. Vaginal bleeding x 1 month, hemoglobin stable, recommend outpatient follow-up with CONTOUR PATH TAPE MILL OPERATOR. 9.2 x 5.3 x 6.6 cm area of mixed echogenicity of possibly uterus reported per pelvic ultrasound. Further follow-up outpatient with CONTOUR PATH TAPE MILL OPERATOR. Chronic CHF, diastolic dysfunction Paroxysmal atrial fibrillation, anticoagulated on Eliquis Hypertension Hyperlipidemia Morbid obesity, BMI 42 Hospital course:This is a 88-year-old female admitted with complaints of chills, rigors, fevers, cough x 1 day and vaginal bleeding in a patient with past medical history significant for diastolic CHF, paroxysmal atrial fibrillation, anticoagulated on Eliquis, hypertension, hyperlipidemia, morbid obesity and multiple other medical issues. Patient was recently hospitalized last month for near syncope, evaluated by cardiology, suspected dehydration, sinus bradycardia possible vasovagal etiology.Reports vaginal spotting for years, vaginal bleeding x 1 month, not followed up with a CONTOUR PATH TAPE MILL OPERATOR outpatient.Ultrasound pelvis reported poor visualization of the pelvic structures Limited evaluation, TV ultrasound not performed due to body habitus and poor patient mobility; 9.2 x 5.3 x 6.6 cm area of mixed echogenicity of possibly uterus. Chest x-ray reported hazy and streaky densities in the perihilar regions, partially obscured by external soft tissue artifact but appears increased since previous possible developing pneumonia or pulmonary edema, moderate cardiomegaly, similar to previous. Tmax 101.3, blood cultures obtained. Denies chest pain, palpitations or shortness of breath. Maintaining O2 sats of 98% on room air. WBC on admission 19.1, hemoglobin 9.5, platelets 281, INR 1.2, sodium 133, potassium 4.3, bicarb 24, BUN 23, creatinine 1.13 glucose 103 lactic acid 1.3, AST 48, ALT 45, UA negative, viral studies negative. Significant clinical improvement. Maintained on IV antibiotics, procalcitonin returned normal, WBC trending down to 11.5. Preliminary blood cultures reportin g no growth after 24 hours. Afebrile. Bicarb 26, BUN 22, creatinine 1.01. Denies chest pain, palpitations or shortness of breath. Maintaining O2 sats of 100% on room air. Consuming 50% of diet with no nausea vomiting or diarrhea. Denies denies abdominal pain. Patient will be discharged home today in a stable condition with guarded prognosis. Microbiology 02/18/24 00:45 Blood Blood Culture - Preliminary 02/18/24 00:30 Blood Blood Culture - Preliminary The impression and plan of care has been dictated as directed. : I performed a history and examination of this patient, discussed the same with the dictator. I agree with the dictator's note ,documented as a scribe. Any additional findings or plans will be noted. Patient Condition at Discharge: Stable Plan - Discharge Summary Discharge Rx Participant: No New Discharge Prescriptions: No Action Losartan Potassium 100 mg PO DAILY Furosemide [Lasix] 40 mg PO DAILY Empagliflozin [Jardiance] 10 mg PO DAILY Metoprolol Tartrate [Lopressor] 12.5 mg PO BID #60 tab Gabapentin 600 mg PO BID PRN PRN Reason: Pain Potassium Chloride ER [K-Dur 20] 20 meq PO HS Pantoprazole [Protonix] 40 mg PO DAILY oxyBUTYnin chloride [Ditropan] 5 mg PO DAILY Escitalopram [Lexapro] 10 mg PO DAILY Apixaban [Eliquis] 5 mg PO BID Acetaminophen [Tylenol Arthritis] 650 - 1,300 mg PO Q6H PRN PRN Reason: Pain Or Fever > 100.5 Discharge Medication List Acetaminophen [Tylenol Arthritis] 650 - 1,300 mg PO Q6H PRN 01/05/24 [History] Apixaban [Eliquis] 5 mg PO BID 01/05/24 [History] Empagliflozin [Jardiance] 10 mg PO DAILY 01/05/24 [History] Escitalopram [Lexapro] 10 mg PO DAILY 01/05/24 [History] Furosemide [Lasix] 40 mg PO DAILY 01/05/24 [History] Losartan Potassium 100 mg PO DAILY 01/05/24 [History] Pantoprazole [Protonix] 40 mg PO DAILY 01/05/24 [History] Potassium Chloride ER [K-Dur 20] 20 meq PO HS 01/05/24 [History] oxyBUTYnin chloride [Ditropan] 5 mg PO DAILY 01/05/24 [History] Metoprolol Tartrate [Lopressor] 12.5 mg PO BID #60 tab 01/06/24 [Rx] Gabapentin 600 mg PO BID PRN 02/18/24 [History] Follow up Appointment(s)/Referral(s): Reinier Shields DO [Primary Care Provider] - 1-2 days
[2024-02-20] MEDS: ACETAMINOPHEN TAB 325 MG TAB PO PRN (09:48)
[2024-02-20 14:42] VITALS: BP 107/63; PULSE 88; RESP 17; TEMP 98.5
== END 2024-02-20 16:15 | disposition home or self-care (01) | DRG 760 ==
LOC: EC 18:27 → OBSVTOIN 02-18 00:17 → 6NMEDSUR 02-18 00:17
PROVIDERS: ADMIT Family Medicine; ATTEND Family Medicine
DX: N93.9 Abnormal uterine and vaginal bleeding, unspecified (principal); J18.9 Pneumonia, unspecified organism; I50.32 Chronic diastolic (congestive) heart failure; Z68.41 Body mass index [BMI] 40.0-44.9, adult; I11.0 Hypertensive heart disease with heart failure; E66.01 Morbid (severe) obesity due to excess calories; I48.0 Paroxysmal atrial fibrillation; E78.5 Hyperlipidemia, unspecified; Z79.01 Long term (current) use of anticoagulants; Z86.19 Personal history of other infectious and parasitic diseases; Z79.84 Long term (current) use of oral hypoglycemic drugs; Z79.899 Other long term (current) drug therapy; Z91.040 Latex allergy status
CPT/HCPCS: 36415; 71046; 76856; 80048; 80053; 81001; 83605; 83735; 84145; 85025; 85027; 85610; 85730; 87040; 87636; 93005; 96365; 96368; 99285

== ENCOUNTER 2024-09-30 14:07 | Emergency (ER) | payer MEDICARE, OTHER ==
--- NOTE | 2024-09-30 15:24 | ED ---
General Adult HPI - General Chief complaint: Vaginal Bleeding Stated complaint: vaginal bleeding Time Seen by Provider: 09/30/24 15:01 Source: patient, RN notes reviewed, old records reviewed Mode of arrival: ambulatory Limitations: no limitations - History of Present Illness Initial comments: 89 male presenting for evaluation of vaginal bleeding. Patient has been on Eliquis for approximately 1 year secondary to atrial fibrillation. She has noted several episodes of vaginal bleeding throughout the years for the past 10 or so years. She has not had an evaluation for this bleeding thus far. She reports no current abdominal pain. No rectal bleeding. No prior gynecological surgeries. - Related Data Home Medications Medication Instructions Recorded Confirmed Acetaminophen [Tylenol Arthritis] 650 - 1,300 mg PO Q6H PRN 01/05/24 02/18/24 Apixaban [Eliquis] 5 mg PO BID 01/05/24 02/18/24 Empagliflozin [Jardiance] 10 mg PO DAILY 01/05/24 02/18/24 Escitalopram [Lexapro] 10 mg PO DAILY 01/05/24 02/18/24 Furosemide [Lasix] 40 mg PO DAILY 01/05/24 02/18/24 Losartan Potassium 100 mg PO DAILY 01/05/24 02/18/24 Pantoprazole [Protonix] 40 mg PO DAILY 01/05/24 02/18/24 Potassium Chloride ER [K-Dur 20] 20 meq PO HS 01/05/24 02/18/24 oxyBUTYnin chloride [Ditropan] 5 mg PO DAILY 01/05/24 02/18/24 Gabapentin 600 mg PO BID PRN 02/18/24 02/18/24 Previous Rx's Medication Instructions Recorded Metoprolol Tartrate [Lopressor] 12.5 mg PO BID #60 tab 01/06/24 Allergies Allergy/AdvReac Type Severity Reaction Status Date / Time Latex, Natural Rubber Allergy Rash/Hives Verified 09/30/24 15:10 Review of Systems ROS Statement: Those systems with pertinent positive or pertinent negative responses have been documented in the HPI. ROS Other: All systems not noted in ROS Statement are negative. Past Medical History Past Medical History: Heart Failure, Hypertension History of Any Multi-Drug Resistant Organisms: VRE Date of last positivie culture/infection: 09/06/19 MDRO Source:: VRE URINE Past Surgical History: No Surgical Hx Reported Additional Past Surgical History / Comment(s): knee replacement 2014 Smoking Status: Never smoker Past Alcohol Use History: None Reported Past Drug Use History: None Reported General Exam Limitations: no limitations General appearance: alert, in no apparent distress Head exam: Present: atraumatic, normocephalic Eye exam: Present: normal appearance, PERRL ENT exam: Present: normal exam Neck exam: Present: normal inspection Respiratory exam: Present: normal lung sounds bilaterally. Absent: respiratory distress, wheezes Cardiovascular Exam: Present: regular rate, normal rhythm GI/Abdominal exam: Present: soft. Absent: distended, tenderness, guarding, rebound External exam: Present: other (Some vaginal bleeding with very small clots) Neurological exam: Present: alert, oriented X3 Psychiatric exam: Present: normal affect, normal mood Skin exam: Present: warm, dry, intact. Absent: cyanosis, diaphoretic Course Vital Signs 09/30/24 09/30/24 15:08 15:23 Temperature 99.2 F Pulse Rate 62 57 L Respiratory 18 18 Rate Blood Pressure 129/77 129/77 O2 Sat by Pulse 98 97 Oximetry Medical Decision Making - Medical Decision Making Was pt. sent in by a medical professional or institution (Dr. PA, BUSINESS PROCESS ENGINEER, urgent care, hospital, or group home...) When possible be specific @ -No Did you speak to anyone other than the patient for history (EMS, parent, family, police, friend...)? What history was obtained from this source @ -No Did you review nursing and triage notes (agree or disagree)? Why? @ -I reviewed and agree with nursing and triage notes Were old charts reviewed (outside hosp., previous admission, EMS record, old EKG, old radiological studies, urgent care reports/EKG's, group home records)? Report findings @ -No old charts were reviewed Differential Vaginal Bleeding: dysfunctional uterine bleeding, uterine neoplasm, uterine fibroids, this is not meant to be an all-inclusive list. EKG interpreted by me (3pts min.). @Latest rhythm rate of 64 PAC, NM interval 161, QRS duration 86, QTc [address] segment elevation. X-rays interpreted by me (1pt min.). @ -None done CT interpreted by me (1pt min.). @ -None done U/S interpreted by me (1pt. min.). @ -Ultrasound showing a thickened endometrium and possible fibroid this will require gynecological evaluation. What testing was considered but not performed or refused? (CT, X-rays, U/S, labs)? Why? @ -None What meds were considered but not given or refused? Why? @ -None Did you discuss the management of the patient with other professionals ( professionals i.e. , PA, BUSINESS PROCESS ENGINEER, lab, RT, psych nurse, social work administrator, shipping and receiving coordinator, teacher, traffic division commanding officer, case management social worker)? Give summary @ -No Was smoking cessation discussed for >3mins.? @ -No Was critical care preformed (if so, how long)? @ -No Were there social determinants of health that impacted care today? How? (Homelessness, low income, unemployed, alcoholism, drug addiction, transportation, low edu. Level, literacy, decrease access to med. care, group home, rehab)? @ -No Was there de-escalation of care discussed even if they declined (Discuss DNR or withdrawal of care, Hospice)? DNR status @ -No What co-morbidities impacted this encounter? (DM, HTN, Smoking, COPD, CAD, Cancer, CVA, ARF, Chemo, Hep., AIDS, mental health diagnosis, sleep apnea, morbid obesity)? @ -None Was patient admitted / discharged? Hospital course, mention meds given and route, prescriptions, significant lab abnormalities, going to OR and other pertinent info. @ -[89-year-old female Has Had Intermittent Vaginal Bleeding over the past 10 Years without Prior Evaluation. Patient's Hemoglobin Is Stable at 11.8. She Has Stable Vitals. Ultrasound Shows a Thickened Endometrium and Possible Uterine Fibroid. This Will Require Evaluation with Gynecology. Patient and Family Members Informed. Patient Will Monitor Bleeding and Follow Closely with Primary Care Provider As Well As Gynecology. Return Parameters Discussed. Undiagnosed new problem with uncertain prognosis? @ -No Drug Therapy requiring intensive monitoring for toxicity (Heparin, Nitro, Insulin, Cardizem)? @ -No Were any procedures done? @ -No Diagnosis/symptom? @ -Abnormal vaginal bleeding Acute, or Chronic, or Acute on Chronic? @ -[Acute Uncomplicated (without systemic symptoms) or Complicated (systemic symptoms)? @ -Default Side effects of treatment? @ -No Exacerbation, Progression, or Severe Exacerbation? @ -No Poses a threat to life or bodily function? How? (Chest pain, [place], HI, pneumonia, PE, COPD, DKA, ARF, appy, cholecystitis, CVA, Diverticulitis, Homicidal, Suicidal, threat to staff... and all critical care pts) @ -[Low risk at this time - Lab Data Result diagrams: 09/30/24 15:35 09/30/24 15:35 Lab Results 09/30/24 09/30/24 09/30/24 Range/Units 15:35 15:35 15:35 WBC 13.0 H (3.8-10.6) k/uL RBC 4.68 (3.80-5.40) m/uL Hgb 11.8 (11.4-16.0) gm/dL Hct 40.6 (34.0-46.0) % MCV 86.7 (80.0-100.0) fL MCH 25.3 (25.0-35.0) pg MCHC 29.2 L (31.0-37.0) g/dL RDW 15.5 (11.5-15.5) % Plt Count 308 (150-450) k/uL MPV 7.8 Neutrophils % 70 % Lymphocytes % 21 % Monocytes % 4 % Eosinophils % 4 % Basophils % 0 % Neutrophils # 9.1 H (1.3-7.7) k/uL Lymphocytes # 2.7 (1.0-4.8) k/uL Monocytes # 0.5 (0-1.0) k/uL Eosinophils # 0.5 (0-0.7) k/uL Basophils # 0.1 (0-0.2) k/uL Hypochromasia Marked PT 12.0 (10.0-12.5) sec INR 1.1 (<1.2) APTT 23.5 (22.0-30.0) sec Sodium 137 (137-145) mmol/L Potassium 4.9 (3.5-5.1) mmol/L Chloride 102 (98-107) mmol/L Carbon Dioxide 26 (22-30) mmol/L Anion Gap 9 mmol/L BUN 25 H (7-17) mg/dL Creatinine 0.94 (0.52-1.04) mg/dL Est GFR (CKD-EPI)AfAm 63 (>60 ml/min/1.73 sqM) Est GFR (CKD-EPI)NonAf 54 (>60 ml/min/1.73 sqM) Glucose 118 H (74-99) mg/dL Calcium 9.0 (8.4-10.2) mg/dL Total Bilirubin 0.5 (0.2-1.3) mg/dL AST 20 (14-36) U/L ALT 14 (4-34) U/L Alkaline Phosphatase 62 (38-126) U/L Total Protein 7.1 (6.3-8.2) g/dL Albumin 3.7 (3.5-5.0) g/dL Disposition Clinical Impression: Dysfunctional uterine bleeding Disposition: HOME SELF-CARE Condition: Fair Instructions (If sedation given, give patient instructions): Abnormal (D ysfunctional) Uterine Bleeding (ED) Is patient prescribed a controlled substance at d/c from ED?: No Referrals: None,Stated [Primary Care Provider] - 1-2 days Josi Ortega DO [Doctor of Osteopathic Medicine] - 1-2 days Time of Disposition: 16:31
[2024-09-30 15:34] VITALS: RESP 18
[2024-09-30 15:51] LABS: Basophils # (A) 0.1 k/uL (0-0.2); Basophils % (A) 0 %; Eosinophils # (A) 0.5 k/uL (0-0.7); Eosinophils % (A) 4 %; HCT 40.6 % (34.0-46.0); HGB 11.8 gm/dL (11.4-16.0); Hypochromasia Marked; Lymphocytes # (A) 2.7 k/uL (1.0-4.8); Lymphocytes % (A) 21 %; MCH 25.3 pg (25.0-35.0); MCHC 29.2 g/dL (31.0-37.0); MCV 86.7 fL (80.0-100.0); Mean Platelet Volume 7.8; Monocytes # (A) 0.5 k/uL (0-1.0); Monocytes % (A) 4 %; Neutrophils # (A) 9.1 k/uL (1.3-7.7); Neutrophils % (A) 70 %; Platelet Count 308 k/uL (150-450); RBC 4.68 m/uL (3.80-5.40); RDW 15.5 % (11.5-15.5)
[2024-09-30 16:00] LABS: INR 1.1 (<1.2); Partial Thromboplastin Time 23.5 sec (22.0-30.0)
[2024-09-30 16:03] LABS: ALT 14 U/L (4-34); African American GFR (CKD) 63 (>60 ml/min/1.73 sqM); Albumin 3.7 g/dL (3.5-5.0); Anion Gap 9 mmol/L; Blood Urea Nitrogen 25 mg/dL (7-17); Carbon Dioxide 26 mmol/L (22-30); Chloride 102 mmol/L (98-107); Glucose 118 mg/dL (74-99); Non-African American GFR(CKD) 54 (>60 ml/min/1.73 sqM); Sodium 137 mmol/L (137-145); Total Bilirubin 0.5 mg/dL (0.2-1.3); Total Protein 7.1 g/dL (6.3-8.2)
[2024-09-30 16:04] LABS: AST 20 U/L (14-36); Alkaline Phosphatase 62 U/L (38-126); Potassium 4.9 mmol/L (3.5-5.1)
--- NOTE | 2024-09-30 16:12 | US ---
EXAMINATION TYPE: US pelvic complete DATE OF EXAM: 09/30/2024 COMPARISON: 02/17/24 CLINICAL INDICATION: Female, 89 years old with history of vaginal bleeding; vaginal bleeding x 2 days with clots today TECHNIQUE: Transabdominal (TA). Doppler imaging: Not performed. FINDINGS: Date of LMP: unknown EXAM MEASUREMENTS: Uterus: 10.1 x 5.8 x 5.1 cm Endometrial Stripe: 1.3 cm Right Ovary: not seen Left Ovary: not seen Slightly limited due to bowel gas and body habitus 1. Uterus: Anteverted hypoechoic area seen on lt uterus measuring 2.7 x 2.5 x 1.6cm. Appears enlar ged for age 2. Endometrium: appears thickened for age 3. Right Ovary: not seen due to atrophy and bowel gas 4. Left Ovary: not seen due to atrophy and bowel gas 5. Bilateral Adnexa: wnl 6. Posterior cul-de-sac: wnl IMPRESSION: 1. Endometrium enlarged for thickness, further evaluation to rule out endometrial carcinoma recommen ded. 2. Possible uterine fibroid present. 3. [facility], , 09/30/2024 4:09 PM
[2024-09-30 16:59] VITALS: BP 123/60; PULSE 69; TEMP 98
== END 2024-09-30 16:58 | disposition home or self-care (01) ==
LOC: EC 14:07
DX: N93.8 Other specified abnormal uterine and vaginal bleeding (principal); Z91.040 Latex allergy status
CPT/HCPCS: 36415; 76856; 80053; 85025; 85610; 85730; 93005; 99284